=== PATIENT | female | born 1990 | race American Indian/Alaskan Native ===

== ENCOUNTER 2018-09-13 07:44 | Inpatient (IN) | payer MEDICAID ==
[2018-09-13] MEDS ORDERED: LACTATED RINGERS 1,000 ML ONE (09:37)
[2018-09-13] MEDS ORDERED: XYLOCAINE 2% INFILTRATI ONE (09:44)
[2018-09-13] MEDS ORDERED: BRETHINE IVP PRN (09:44)
[2018-09-13] MEDS ORDERED: BRETHINE SUB-Q PRN (09:44)
[2018-09-13] MEDS ORDERED: ZOFRAN IV PRN (09:44)
[2018-09-13] MEDS ORDERED: NARCAN 0.4 MG/1 ML IV PRN (09:44)
[2018-09-13] MEDS ORDERED: MINERAL OIL PO PRN (09:44)
[2018-09-13] MEDS ORDERED: AMPICILLIN/NS 2 GM/100 ML 2 GM/100 ML BAG IV ONE ×2 (09:44→09:47)
[2018-09-13] MEDS ORDERED: STADOL IV PRN (09:44)
[2018-09-13 09:55] LABS: Hematocrit 34.7 % (30.3-42.9); Hemoglobin 11.8 gm/dl (10.1-14.3); Mean Corpuscular HGB Conc 34 % (30-34); Mean Corpuscular Volume 88 fl (79-97); Platelet Count 248 K/mm3 (140-440); Red Blood Count 3.95 M/mm3 (3.65-5.03); Red Cell Distribution Width 13.8 % (13.2-15.2)
[2018-09-13] MEDS ORDERED: PITOCin/NS 20 UNIT/1000ML DRIP 20 UNITS/1,000 ML BAG IV SCH (10:00)
[2018-09-13] MEDS ORDERED: PITOCin/NS 30 UNIT/500ML 30 UNITS/500 ML BAG IV SCH (10:00)
[2018-09-13] MEDS ORDERED: LACTATED RINGERS 1,000 ML IV SCH (10:00)
--- NOTE | 2018-09-13 10:01 | History and Physical Report ---
History of Present Illness Date of examination: 09/13/18 Date of admission: 09/13/18 07:45 Chief complaint: My water broke last night at 9:00PM. History of present illness: care at [facility]; States she had a uncomplicated course, Abnormal pap (LGSIL) +HSV II; taking suppression. 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 THC use) - Obstetrical History Expected Date of Delivery: 10/02/18 Actual Gestation: 37 Week(s) 2 Day(s) : 5 Para: 2 Hx # Term Pregnancies: 2 Spontaneous Abortions: 1 Induced : 1 Number of Living Children: 2 #1 Gender: Female year: 2,[birth year] Birthweight: 3.175 kg Method of Delivery: Vaginal Gestational age at delivery: 40 #2 Infant Gender: Female year: 2,[birth year] Birthweight: 2.722 kg Method of Delivery: Vaginal Complications: none Medications and Allergies Active Meds: Active Medications Butorphanol Tartrate (Stadol) 2 mg IV Q2H PRN PRN Reason: Pain , Severe (7-10) Ephedrine Sulfate (Ephedrine Sulfate) 10 mg IV Q2M PRN PRN Reason: Hypotension Ampicillin Sodium (Ampicillin/Ns 1 Gm/50 Ml) 1 gm in 50 mls @ 100 mls/hr IV Q4HR SUNITA; Protocol Ampicillin Sodium (Polycillin/Ns 2 Gm/100 Ml) 2 gm in 100 mls @ 100 mls/hr IV ONCE ONE; Protocol Stop: 09/13/18 10:43 Lactated Ringer's (Lactated Ringers) 1,000 mls @ 125 mls/hr IV DIRECT SUNITA Oxytocin/Sodium Chloride (Pitocin/Ns 20 Unit/1000ml Drip) 20 units in 1,000 mls @ 125 mls/hr IV DIRECT SUNITA Oxytocin/Sodium Chloride (Pitocin/Ns 30 Unit/500ml) 30 units in 500 mls @ 4 mls/hr IV TITR SUNITA; Protocol Lidocaine (Xylocaine 2%) 20 ml INFILTRATI ONCE ONE Stop: 09/13/18 09:45 Mineral Oil (Mineral Oil) 30 ml PO QHS PRN PRN Reason: Constipation Naloxone HCl (Narcan 0.4 Mg/1 Ml) 0.1 mg IV Q2MIN PRN PRN Reason: Res Rate </= 8 or 02 SAT < 92% Ondansetron HCl (Zofran) 4 mg IV Q8H PRN PRN Reason: Nausea And Vomiting Terbutaline Sulfate (Brethine) 0.25 mg SUB-Q ONCE PRN PRN Reason: Hyperstimulation/Hypertonicity Terbutaline Sulfate (Brethine) 0.25 mg IVP ONCE PRN PRN Reason: Hyperstimulation/Hypertonicity Review of Systems All systems: negative - Vital Signs Vital signs: Vital Signs Pulse BP 65 118/86 09/13/18 08:59 09/13/18 08:59 Temp Pulse Resp BP Pulse Ox 65 118/86 09/13/18 08:59 09/13/18 08:59 - Physical Exam Breasts: Positive: normal Cardiovascular: Regular rate Lungs: Positive: Clear to auscultation, Normal air movement Abdomen: Positive: normal appearance, soft, normal bowel sounds Genitourinary (Female): Positive: normal external genitalia, normal perenium Anus/Rectum: Positive: normal perianal skin Extremities: Positive: normal - Obstetrical FHR: category 1 Uterine Contraction Monitor Mode: External Cervical Dilatation: 5.5 Cervical Effacement Percentage: 80 station: -2 Uterine Contraction Pattern: Absent Uterine Tone Measurement Phase: Resting Uterine Contraction Intensity: Moderate Results All other labs normal. Assessment and Plan A: IUP @ 37 2/7 Weeks PROM Category I Tracing GBS Positive P: Admit to L&D per Routine Orders Pitocin Augmentation GBS Prophylaxis
[2018-09-13] MEDS ORDERED: MILK OF MAGNESIA PO PRN (12:19)
[2018-09-13] MEDS ORDERED: BENADRYL PO PRN (12:19)
[2018-09-13] MEDS ORDERED: DULCOLAX PR PRN (12:19)
--- NOTE | 2018-09-13 12:29 | Procedure Note ---
OB Delivery Note - Delivery Date of Delivery: 09/13/18 (1203) Surgeon: JAK SHABAZZ Estimated blood loss: other (150) - Vaginal Delivery presentation: vertex Delivery position: OA Delivery augmentation: pitocin Delivery monitor: external FHT, external uterine Route of delivery: Delivery placenta: spontaneous Delivery cord: 3 umbilical vessels Episiotomy: none Delivery laceration: none Anesthesia: none Delivery comments: of a live 5'15 male infant over a intact perineum under IV pain control with Apgars of 8 and 9 at 1203 on 09/13/2018. Infant directly to maternal abd/chest, skin to skin contact. Spontaneous delivery of placenta complete and intact with Mcgee side presenting at 1210. Fundus is firm and midline located 4 below the U. Lochia is scant. Delayed cord clamping and cutting; Cord cut by the patient. - Infant A at 1 minute: 8 at 5 minutes: 9 Gender: Male (5'15)
[2018-09-13] MEDS ORDERED: SODIUM CHLORIDE FLUSH SYRINGE 10 ML IV NR (13:00)
[2018-09-13] MEDS ORDERED: AMPICILLIN/NS 1 GM/50 ML 1 GM/50 ML BAG IV SCH (13:46)
[2018-09-13] MEDS: IBUPROFEN PO SCH (18:00)
[2018-09-14] MEDS: IBUPROFEN PO SCH (01:46)
[2018-09-14 02:09] LABS: Hematocrit 34.4 % (30.3-42.9); Hemoglobin 11.8 gm/dl (10.1-14.3)
[2018-09-14] MEDS: PRENATAL VITAMIN PO SCH (10:40)
[2018-09-14] MEDS: NORCO 5/325 PO PRN (10:43)
--- NOTE | 2018-09-14 11:14 | Progress Note ---
<SINAN - Last Filed: 09/14/18 11:13> Assessment and Plan A: PPD#1 s/p Stable P: Routine PP care Discharge home today pending Peds Subjective - Subjective Date of service: 09/14/18 Principal diagnosis: PPD#1 s/p Interval history: See H&P and delivery note Patient reports: appetite normal, voiding normally, pain well controlled, flatus, ambulating normally, no bowel movement : doing well, bottle feeding Objective - Vital Signs Latest vital signs: Vital Signs Temp Pulse Resp BP BP Pulse Ox 09/14/18 11:05 98.5 F 72 20 113/61 99 09/14/18 09:40 68 99 09/14/18 00:00 98.7 F 66 18 114/78 09/13/18 20:00 98.6 F 74 16 102/75 09/13/18 15:56 97.7 F 55 L 24 116/68 100 09/13/18 14:25 97.7 F 84 110/72 09/13/18 13:32 54 L 111/55 09/13/18 13:17 63 92/51 09/13/18 13:02 60 121/64 09/13/18 12:47 62 103/66 09/13/18 12:32 67 111/61 Intake and Output 09/13/18 09/14/18 09/14/18 23:59 07:59 15:59 Intake Total 540 Balance 540 Intake: Oral 240 Intake, Free Water 300 Other: Total, Intake Amount 240 - Exam Breasts: Present: normal Cardiovascular: Present: Regular rate, Normal S1, Normal S2, No murmurs Lungs: Present: Clear to auscultation, Normal air movement Abdomen: Present: normal appearance, soft, normal bowel sounds. Absent: distention Vulva: both: normal Uterus: Present: normal, fundal height at umbilicus Extremities: Present: normal Deep Tendon Reflex Grade: Normal +2 <DOMINIQUE RODRIGUEZ - Last Filed: 09/17/18 08:44> Objective - Labs Labs: Laboratory Tests 09/13/18 09/13/18 09/13/18 09:30 09:30 11:03 WBC 8.8 RBC 3.95 Hgb 11.8 Hct 34.7 MCV 88 MCH 30 MCHC 34 RDW 13.8 Plt Count 248 RPR Nonreactive Blood Type A POSITIVE Antibody Screen Negative 09/14/18 01:44 WBC RBC Hgb 11.8 Hct 34.4 MCV MCH MCHC RDW Plt Count RPR Blood Type Antibody Screen
--- NOTE | 2018-09-14 11:15 | Discharge Summary ---
Providers - Providers Date of Admission: 09/13/18 07:45 Date of discharge: 09/14/18 Attending physician: DOMINIQUE RODRIGUEZ Primary care physician: DOMINIQUE RODRIGUEZ Hospitalization Reason for admission: active labor, IUP at term Delivery: Procedure details: See delivery note Episiotomy: none Laceration: none Other procedures: none complications: none Discharge diagnosis: IUP at term delivered [place] baby: male Condition at discharge: Good Disposition: DC-01 TO HOME OR SELFCARE Plan - Provider Discharge Summary Activity: routine, no sex for 6 weeks, no heavy lifting 4 weeks, no strenuous exercise Diet: routine Instructions: routine Additional instructions: [] Smoking cessation referral if applicable(refer to patient education folder for contact #) [] Refer to [facility] Booklet Call your doctor immediately for: * Fever > 100.5 * Heavy vaginal bleeding ( >1 pad per hour) * Severe persistent headache * Shortness of breath * Reddened, hot, painful area to leg or breast * Drainage or odor from incision. * Keep incision clean and dry at all times and follow doctor's instructions regarding bathing/showering - Follow up plan Follow up: DOMINIQUE RODRGIUEZ [Primary Care Provider] - 6 Weeks
[2018-09-15] MEDS: IBUPROFEN PO SCH ×2 (00:24→10:53)
[2018-09-15] MEDS: NORCO 5/325 PO PRN ×2 (00:27→10:52)
[2018-09-15] MEDS: PRENATAL VITAMIN PO SCH (10:54)
[2018-09-15 13:02] VITALS: BP 118/68
== END 2018-09-15 12:15 | disposition home or self-care (01) | DRG 775 ==
LOC: TRG 07:44 → LD 07:45 → TRG 07:45 → OB 14:25
PROVIDERS: ADMIT Obstetrics & Gynecology; ATTEND Obstetrics & Gynecology
PROC: 10E0XZZ Delivery of Products of Conception, External Approach (ICD-10-PCS; principal; 2018-09-13)
DX: O42.92 Full-term premature rupture of membranes, unspecified as to length of time between rupture and onset of labor (principal); O99.824 Streptococcus B carrier state complicating childbirth; O99.334 Smoking (tobacco) complicating childbirth; Z37.0 Single live birth; Z3A.37 37 weeks gestation of pregnancy; Z83.3 Family history of diabetes mellitus; Z82.49 Family history of ischemic heart disease and other diseases of the circulatory system
CPT/HCPCS: 36415; 85014; 85018; 85027; 86592; 86850; 86900; 86901; G0378; J0290; J0595; J2590; J7120